=== PATIENT | female | born 1965 | race Native Hawaiian/Other Pacific Islander ===

== ENCOUNTER 2020-03-25 11:54 | Emergency (ER) | payer OTHER ==
[~2020-03-25] VITALS: Ht 162.6 cm; Wt 136.1 kg
[2020-03-25 12:32] LABS: PLATELET COUNT 338 K/uL (152-353)
[2020-03-25 12:39] LABS: POTASSIUM 3.5 mmol/L (3.6-5.2)
[2020-03-25 14:34] VITALS: BP 128/81; TEMP 98.5
== END 2020-03-25 14:35 | disposition home or self-care (01) ==
LOC: ED 12:04
PROVIDERS: Family Medicine
DX: K52.89 Other specified noninfective gastroenteritis and colitis (principal); F41.8 Other specified anxiety disorders
CPT/HCPCS: 36415; 80053; 85027; 96360; 96375; 99284